=== PATIENT | male | born 1945 | race African-American/Black ===

== ENCOUNTER 2018-03-08 17:44 | Inpatient (IN) | payer MEDICARE, MEDICAID ==
[2018-03-08] MEDS: Multivitamin Tab PO SCH (17:50)
--- NOTE | 2018-03-08 18:01 | ED Physician Chart ---
ED Chief Complaint/HPI - Patient Information Date Seen:: 03/08/18 Time Seen:: 17:50 Chief Complaint:: increased restlessness and agitation History of Present Illness:: Patient has been exhibiting increased restlessness and agitation and refusal of care and refusing medications at his [facility] facility. Historian:: Patient, EMS Review:: Transfer documents Reviewed ED Review of Systems - Review of Systems General/Constitutional: No fever, No chills, No weight loss, No weakness, No diaphoresis, No edema, No loss of appetite Skin: No skin lesions, No rash, No bruising Head: No headache, No light-headedness Eyes: No loss of vision, No pain, No diplopia ENT: No earache, No nasal drainage, No sore throat, No tinnitus Neck: No neck pain, No swelling, No thyromegaly, No stiffness, No mass noted Cardio Vascular: No chest pain, No palpitations, No PND, No orthopnea, No edema Pulmonary: No SOB, No cough, No sputum, No wheezing GI: No nausea, No vomiting, No diarrhea, No pain, No melena, No hematochezia, No constipation, No hematemesis G/U: No dysuria, No frequency, No hematuria Musculoskeletal: No bone or joint pain, No back pain, No muscle pain Endocrine: No polyuria, No polydipsia Psychiatric: Prior psych history, No depression Hematopoietic: No bruising, No lymphadenopathy Allergic/Immuno: No urticaria, No angioedema Neurological: No syncope, Focal symptoms, No weakness, No paresthesia, No headache, No seizure, No dizziness, No confusion, No vertigo ED Past Medical History - Past Medical History Past Medical History: HTN, PUD/GERD, Arthritis, Dementia, Other (atrial fibrillation; Parkinson's disease; cerebrovascular accident with left hemiplegia ) Family History: Other (unavailable) Social History: Smoker Surgical History: other (unavailable) Psychiatricy History: Schizophrenia Medication: Reviewed Family Medical History - Family Member Mother History Unknown: Yes ED Physical Exam - Physical Examination General/Constitutional: Awake Other Gen/Cons comments:: Mildly chronically ill-appearing. Patient is confused. States the year is 1987. Head: Atraumatic Eyes: Lids, conjuctiva normal Skin: Nl inspection, No rash ENMT: External ears, nose nl Neck: Nontender Respiratory: Nl effort/Exclusion, Clear to Auscultation Other Cardio Vascular comments:: Irregular rhythm with a 4/6 systolic murmur GI: No tenderness/rebounding/guarding : No CVA tenderness Extremities: Normal digits & nails Other Neuro/Psych comments:: 1 out of 4 drooping left side of mouth; weakness left arm and left leg ED Labs/Radiology/EKG Results - Lab Results Results: Laboratory Results - last 24 hr 03/08/18 03/08/18 03/08/18 18:05 18:05 18:05 WBC 3.5 L RBC 4.55 Hgb 13.5 Hct 40.9 L MCV 90.0 MCH 29.6 MCHC Differential 32.9 RDW 14.5 Plt Count 225 MPV 6.8 Neutrophils % 60.7 Lymphocytes % 30.7 Monocytes % 4.9 Eosinophils % 1.7 Basophils % 2.0 Sodium 139 Potassium 3.9 Chloride 105 Carbon Dioxide 28.9 Anion Gap 9.0 BUN 16 Creatinine 1.1 Est GFR ( Amer) TNP Est GFR (Non-Af Amer) TNP BUN/Creatinine Ratio 14.5 Glucose 104 Hemoglobin A1c % 5.1 Calcium 9.3 Total Bilirubin 1.2 H AST 18 ALT 3 L Alkaline Phosphatase 55 Total Protein 6.7 Albumin 3.7 L Globulin 3.0 Albumin/Globulin Ratio 1.2 Triglycerides 58 Cholesterol 180 LDL Cholesterol Direct 110 HDL Cholesterol 56 TSH 03/08/18 18:05 WBC RBC Hgb Hct MCV MCH MCHC Differential RDW Plt Count MPV Neutrophils % Lymphocytes % Monocytes % Eosinophils % Basophils % Sodium Potassium Chloride Carbon Dioxide Anion Gap BUN Creatinine Est GFR ( Amer) Est GFR (Non-Af Amer) BUN/Creatinine Ratio Glucose Hemoglobin A1c % Calcium Total Bilirubin AST ALT Alkaline Phosphatase Total Protein Albumin Globulin Albumin/Globulin Ratio Triglycerides Cholesterol LDL Cholesterol Direct HDL Cholesterol TSH 1.48 - EKG Interpretations Rate & Rhythm: atrial fibrillation with a rate is 66 [place]: left axis deviation ED Septic Shock - . Is Septic Shock (SBP<90, OR Lactate>4 mmol\L) present?: No ED Reassessment (Disposition) - Reassessment Reassessment:: Patient is in atrial fibrillation and at times his heart rate gets slightly bradycardic. Reassessment Condition:: Unchanged - Diagnosis Diagnosis:: Agitation; dementia; status post CVA with left hemiparesis - Patient Disposition Admitted to:: [facility] Admitting Medical Physician:: Alexis Aguilar Admitting Psych Physician:: Johnny Bethea Condition at Disposition:: Stable, Unchanged
[2018-03-08 18:19] LABS: % EOSINOPHILS 1.7 % (0.0-5.0); % LYMPHOCYTES 30.7 % (20.0-50.0); % MONOCYTES 4.9 % (2.0-10.0); % NEUTROPHILS 60.7 % (40.0-80.0); BASOPHILE ABSOLUTE 0.1 Th/cumm (0-0.2); EOSINOPHILE ABSOLUTE 0.1 Th/cmm (0.1-0.4); HEMATOCRIT 40.9 % (41.0-60); HEMOGLOBIN 13.5 gm/dL (12-16); LYMPHOCYTE ABSOLUTE 1.1 Th/cmm (1.5-3.0); MEAN CORPUSCULAR HEMOGLOBIN 29.6 pg (27.0-31.0); MEAN CORPUSCULAR HGB CONC 32.9 pg (28.0-36.0); MEAN PLATELET VOLUME 6.8 fl; MONOCYTE ABSOLUTE 0.2 Th/cmm (0.3-1.0); PLATELET COUNT 225 Th/cmm (150-400); RED BLOOD COUNT 4.55 Mil/cmm (3.80-5.80); RED CELL DISTRIBUTION WIDTH 14.5 % (11.5-20.0)
[2018-03-08 18:31] LABS: WHITE BLOOD COUNT 3.5 Th/cmm (4.8-10.8)
[2018-03-08 18:32] LABS: ALB/GLOB RATIO 1.2 (1.0-1.8); ALBUMIN 3.7 gm/dL (4.2-5.5); ALKALINE PHOSPHATASE 55 U/L (34-104); BILIRUBIN,TOTAL 1.2 mg/dL (0.3-1.0); BUN - UREA NITROGEN 16 mg/dL (7-25); CALCIUM SERUM 9.3 mg/dL (8.6-10.3); CARBON DIOXIDE 28.9 mEq/L (21.0-31.0); CHLORIDE 105 mEq/L (98-107); CHOLESTEROL 180 mg/dL (<200); CREATININE - SERUM 1.1 mg/dL (0.7-1.3); GLUCOSE 104 mg/dL (70-105); HDL -HIGH DENSITY LIPOPROTEIN 56 mg/dL (23-92); POTASSIUM SERUM 3.9 mEq/L (3.5-5.1); SGOT 18 U/L (13-39); SGPT/ALT 3 U/L (7-52); SODIUM SERUM 139 mEq/L (136-145); TOTAL PROTEIN,SERUM 6.7 gm/dL (6.0-8.3); TRIGLYCERIDES 58 mg/dL (<150)
[2018-03-08 19:05] LABS: A1C % 5.1 % (4.0-6.0)
[2018-03-08 20:08] LABS: URINE MICROSCOPIC INDICATED? YES; URINE SOURCE CLEAN C
[2018-03-08 20:09] LABS: URINE BILIRUBIN NEGATIVE (NEGATIVE); URINE BLOOD NEGATIVE (NEGATIVE); URINE GLUCOSE (UA) NEGATIVE (NEGATIVE); URINE KETONE TRACE mg/dL (NEGATIVE); URINE LEUKOCYTE ESTERASE NEGATIVE (NEGATIVE); URINE NITRATE NEGATIVE (NEGATIVE); URINE PH 5.5 (4.6 - 8.0); URINE PROTEIN NEGATIVE (NEGATIVE)
[2018-03-08 20:12] LABS: URINE CLARITY CLEAR (CLEAR); URINE COLOR YELLOW
[2018-03-08 20:14] LABS: URINE BACTERIA NONE SEEN /hpf (NONE SEEN); URINE EPITHELIAL CELLS NONE SEEN /lpf (FEW); URINE RBC NONE SEEN /hpf (0-5); URINE WBC NONE SEEN /hpf (0-5)
[2018-03-08 20:34] VITALS: BP 134/92
[2018-03-08] MEDS ORDERED: Magnesium Hydroxide (MOM) 30 mL UDC PO PRN (22:18)
[2018-03-09] MEDS: Vitamin D3 2,000 IU SGL PO SCH (08:15)
[2018-03-09] MEDS: Diltiazem CD 180 mg C24 PO SCH (08:15)
[2018-03-09] MEDS: Multivitamin Tab PO SCH ×2 (08:16)
[2018-03-09] MEDS ORDERED: RIVASTIGMINE TARTRATE PO SCH (09:00)
--- NOTE | 2018-03-09 13:39 | History & Physical ---
ADMIT DATE: 03/08/2018 INTERNAL MEDICINE CONSULTATION HISTORY OF PRESENT ILLNESS: The patient is a 72-year-old male. PAST MEDICAL HISTORY: Significant for Parkinson disease, hypertension, coronary artery disease, peptic ulcer disease, gastritis, arthritis and osteoporosis. SOCIAL HISTORY: No documented smoking, alcohol abuse. FAMILY HISTORY: Not available. REVIEW OF SYSTEMS: No vomiting, no diarrhea, no melena, no hematochezia, no fever. The patient is bedbound or wheelchair bound. PHYSICAL EXAMINATION: GENERAL: Average male in no obvious respiratory distress. VITAL SIGNS: Include a blood pressure of 110/70, heart rate 80, respiratory rate of 18. SKIN: Showed no cellulitis. HEENT: Normal conjunctivae. NECK: Supple. LUNGS: Clear. Bilateral good air. No adventitious sounds. HEART: First and second present. ABDOMEN: Soft, bowel sounds present. EXTREMITIES: Show arthritis. NEUROLOGIC: The patient has Parkinson disease. LABORATORY AND DIAGNOSTIC DATA: Include white count of 3.5, hemoglobin 13.5, hematocrit 40.9, platelet count of 225. Sodium 139, potassium 3.9, chloride 105, bicarb 28.9, BUN 16, creatinine 1.1, blood sugar 104. ADMITTING DIAGNOSES: Include hypertension, Parkinson disease, coronary artery disease, peptic ulcer disease, gastritis, arthritis, osteoporosis, and dementia. CURRENT MEDICATIONS: Include Lexapro, Zestril, milk of magnesia, Exelon, Cardizem-CD and Restoril. The patient is on Coumadin. The patient is on Sinemet 25/100 four times a day, amantadine 100 mg twice a day. JOB# [id number]
--- NOTE | 2018-03-09 15:09 | Psychosocial Evaluation ---
DATE OF SERVICE: 03/09/2018 IDENTIFYING DATA: The patient is a 72-year-old Afro-[place]og[place]ese male, resident of a [facility] in [place]. Information is obtained by directly interviewing the patient as well as reviewing the admission papers and they are reliable. JUSTIFICATION OF HOSPITALIZATION: The patient is admitted here on a voluntary basis in view of his acute psychosis. CHIEF COMPLAINT: "I do not know. I am not feeling well. I cannot answer all your questions." HISTORY OF PRESENT ILLNESS: This is the first psychiatric hospitalization to [facility] for this patient, who is reported to have been diagnosed to have schizoaffective disorder and is on Lexapro and Zyprexa. The patient has been having difficult time to cope with the stress and the patient is getting easily paranoid, agitated and hence the patient has been referred over here. PAST PSYCHIATRIC HISTORY: The patient is reporting that he cannot recall being in this hospital before. MEDICAL HISTORY AND PHYSICAL EXAMINATION: Requested to be done by Dr. Aguilar. SUBSTANCE ABUSE HISTORY: None. PHYSICAL OR SEXUAL ABUSE HISTORY: None. LEGAL PROBLEMS: None at this time. STRENGTH AND ASSETS: The patient is motivated. MENTAL STATUS EXAMINATION: The patient is a 72-year-old, looking his stated age, superficially cooperative. Eye contact is poor. Mood is irritable. Affect is constricted. The patient has paranoid delusions. The patient is getting frustrated for being in here. The patient is alert and awake. Insight and judgment at this time are noted to be still impaired. Impulse control is noted to be limited. Coping skills are noted to be limited. DIAGNOSTIC IMPRESSION: AXIS I: Schizoaffective disorder by history. AXIS II: None. AXIS III: As per Dr. Aguilar. IMMEDIATE TREATMENT PLAN: The patient is going to be continued on the Lexapro and Zyprexa. The patient is going to be closely monitored. Once stabilized, the patient is going to be discharged back to the facility. JOB# [id number]
[2018-03-10] MEDS: Vitamin D3 2,000 IU SGL PO SCH (09:32)
[2018-03-10] MEDS: Diltiazem CD 180 mg C24 PO SCH (09:33)
[2018-03-10] MEDS: Multivitamin Tab PO SCH ×2 (12:27→12:28)
[2018-03-10 14:29] LABS: INR 1.57 (0.5-1.4); PROTHROMBIN TIME (TEST) 16.7 SECONDS (9.5-11.5)
--- NOTE | 2018-03-11 00:26 | Progress Notes ---
DATE: 03/10/2018 SUBJECTIVE: Staff was spoken to. The patient is interviewed. The patient has been isolative and withdrawn. Insight and judgment at this time are noted to be still impaired. Impulse control is noted to be limited. The patient is still feeling very depressed. The patient, however, has been able to verbalize the concerns. PLAN: The patient is reporting that the medication is too much and he is sleeping a lot and hence the Zyprexa is decreased to 5 mg only at bedtime and the patient is going to be followed up with the supportive therapy. The patient is not ready to be discharged to a lower level of care in view of his depression and psychosis. JOB# [id number]
[2018-03-11] MEDS: Diltiazem CD 180 mg C24 PO SCH (08:28)
[2018-03-11] MEDS: Multivitamin Tab PO SCH ×2 (08:28→08:30)
[2018-03-11] MEDS: Vitamin D3 2,000 IU SGL PO SCH (08:28)
--- NOTE | 2018-03-11 18:03 | Progress Notes ---
DATE: 03/11/2018 SUBJECTIVE: Staff was spoken to. The patient is interviewed. Mood is noted to be dysphoric. Coping skills are noted to be poor. The patient is isolative and withdrawn. Insight and judgment are noted to be still impaired. Impulse control is noted to be poor. The patient is getting easily frustrated. The patient is currently on carbidopa/levodopa and the patient is also on escitalopram 20 mg for his depression and olanzapine has been decreased to 5 mg at bedtime. The patient has paranoid delusions and the depression is a major concern. PLAN: To continue the patient with the supportive therapy and followup. JOB# [id number]
--- NOTE | 2018-03-12 03:23 | Consultation ---
DATE OF CONSULTATION: 03/10/2018 REFERRING PHYSICIAN: Johnny Bethea M.D. TYPE OF CONSULTATION: Psychology. HISTORY OF PRESENT ILLNESS: The patient is a 72-year-old -[place] male, who is a resident of [facility] in [place]. The patient is known to this copy writer from that facility. The following is by record review as well as by patient's self report. The patient is being admitted due to acute psychosis. Upon interview, the patient states he does not know why he is being hospitalized and states that he is not feeling well. The patient had difficulty answering questions, but does recognize this copy writer from his facility. The patient was able to contract for safety and denies any suicidal ideation, plan or intention. PAST MEDICAL HISTORY: Please see history and physical by Dr. Aguilar. PAST PSYCHIATRIC HISTORY: The patient has had previous hospitalizations many years ago. The patient is known to this copy writer from [facility] and is under the care of this copy writer as well as Dr. Odom for Psychiatry. The patient has a history of dementia. SUBSTANCE ABUSE HISTORY: None. PSYCHOSOCIAL HISTORY: The patient is a resident of [facility]. The patient has no family involvement in his care. The patient's occupational and educational history and mormon affiliation are part of the record. The patient states no physical or sexual abuse or any current legal problems. MENTAL STATUS EXAMINATION: The patient appears to be younger than his stated age. The patient's attitude is cooperative. Eye contact is fair. Mood is mildly anxious and irritable at times. Speech is difficult to comprehend and delayed. Thought process shows to be confused. The patient denied any suicidal ideation, plan or intention. The patient denies any auditory or visual hallucinations. There is some evidence of suspiciousness. The patient's behavior has been frustrated on the unit, but compliant and redirectable. Impulse control is fair. Concentration is poor. The patient is confused and has difficulty sustaining focus and attention as well as answering questions relevantly. Sensorium is alert and oriented to person and place. The patient's immediate and short term memory are impaired. Long-term memory needs further evaluation. The patient did not participate in interpretation of proverbs. Insight is poor. Judgment is compromised. DIAGNOSTIC IMPRESSION: AXIS I: 1. History of schizoaffective disorder. 2. History of dementia. AXIS II: Deferred. AXIS III: Please see history and physical by Dr. Aguilar. PLAN: The patient has been seen by Dr. Bethea for psychiatric evaluation and for the management of the patient's psychotropic medications. The patient is being continued on Lexapro and Zyprexa according to Dr. Bethea. We will provide supportive psychotherapy to include reality orientation and reality integration. We will provide coping mechanisms for chronic mental illness. We will also provide coping strategies for phase of life issues. The patient will be followed by this copy writer at his facility. Thank you, Dr. Bethea, for this consult and the opportunity to participate with you in this patient's care. JOB# [id number] CYRUS
[2018-03-12] MEDS: Multivitamin Tab PO SCH ×2 (09:40→09:42)
[2018-03-12] MEDS: Vitamin D3 2,000 IU SGL PO SCH (09:40)
[2018-03-12] MEDS: Diltiazem CD 180 mg C24 PO SCH (09:41)
--- NOTE | 2018-03-12 19:39 | Progress Notes ---
DATE: 03/12/2018 PSYCHIATRIC PROGRESS NOTE SUBJECTIVE: Staff was spoken to. The patient is interviewed. Mood is noted to be irritable. Affect is constricted. The patient is isolative and withdrawn. Paranoid delusions are noted, but denies any command hallucinations today. The patient is able to tolerate the Zyprexa and no major side effects are noted. The patient's sleep is noted to be improving. Appetite is noted to be fair. ASSESSMENT: The patient is still psychotic. PLAN: To continue the patient with the current medications and followup. JOB# [id number]
[2018-03-12] MEDS ORDERED: cloNIDine 0.3 mg/24 hr Tdm TD SCH (22:18)
[2018-03-13] MEDS: Vitamin D3 2,000 IU SGL PO SCH (08:55)
[2018-03-13] MEDS: Diltiazem CD 180 mg C24 PO SCH (08:55)
[2018-03-13] MEDS: Multivitamin Tab PO SCH ×2 (15:55)
--- NOTE | 2018-03-13 17:38 | Progress Notes ---
DATE: 03/13/2018 PSYCHIATRIC PROGRESS NOTE SUBJECTIVE: Staff was spoken to. The patient is interviewed. Mood is noted to be less irritable. The patient has been cooperative today. The patient's insight and judgment are noted to be improving. No side effects to the medications are noted. The patient is currently on the Seroquel, which is being given at 12.5 mg at bedtime. The patient has been able to tolerate the medications. No side effects to the medications are noted. Since the patient has been still presenting with the psychosis, it is decided to increase the dose on the Seroquel to try 25 mg tonight and follow the patient with the supportive therapy. JOB# [id number]
[2018-03-14] MEDS: Vitamin D3 2,000 IU SGL PO SCH (08:27)
[2018-03-14] MEDS: Diltiazem CD 180 mg C24 PO SCH (08:28)
[2018-03-14] MEDS: Multivitamin Tab PO SCH ×2 (08:28→11:54)
--- NOTE | 2018-03-14 19:47 | Discharge Summary ---
DATE OF DISCHARGE: 03/14/2018 IDENTIFYING DATA: The patient is a 72-year-old -[place] Islander male resident of [facility] in [place]. JUSTIFICATION OF HOSPITALIZATION: The patient is admitted on a voluntary basis in view of his psychosis. CHIEF COMPLAINT: "I am not feeling well. "I don't know, I cannot ask you a question." DIAGNOSES AT THE TIME OF ADMISSION: AXIS I: Schizoaffective disorder by history. AXIS II: None. AXIS III: As per Dr. Aguilar. HISTORY OF PRESENT ILLNESS: Please refer the 03/09/2018 dictation done by me. Physical examination was done by Dr. Aguilar and is noted to be significant for peptic ulcer disease, gastritis, arthritis, osteoporosis and Parkinson's disease. HOSPITAL COURSE AND RESPONSE TO TREATMENT: The patient has been observed on inpatient unit, provided with supportive psychotherapy. The patient has been encouraged to participate in the groups and verbalize the concerns. The patient has been given the carbidopa/levodopa 25/100 four times a day and the patient has been placed on the Lexapro for his depression, which was given at 20 mg. The patient's olanzapine has been decreased to 5 mg at bedtime with these medications. The patient was observed and the patient has been doing fairly well. The patient is not noted to be a danger to self or others and hence the patient was discharged with recommendation that he is going to be seeking treatment on an outpatient basis. MENTAL STATUS EXAMINATION: At the time of discharge, the patient's mood is noted to be anxious. Affect is appropriate. The patient has paranoia, but denies any command hallucinations. The patient is not presenting with any threats to harm self or others at the time of the discharge. CONDITION: At the time of discharge noted to be stable. DIAGNOSES AT THE TIME OF DISCHARGE: AXIS I: Schizoaffective disorder. AXIS II: None. AXIS III: Parkinson's disease, peptic ulcer disease, and osteoarthritis. AFTERCARE PLAN: [facility] to be followed up closely by Dr. Odom. PROGNOSIS: At the time of discharge noted to be fair with the treatment. JOB# [id number]
== END 2018-03-14 17:30 | DRG 885 ==
LOC: ER 17:44 → GERO2 19:30
PROVIDERS: ADMIT Psychiatry & Neurology Psychiatry; ATTEND Psychiatry & Neurology Psychiatry
DX: F25.9 Schizoaffective disorder, unspecified (principal); F02.80 Dementia in other diseases classified elsewhere, unspecified severity, without behavioral disturbance, psychotic disturbance, mood disturbance, and anxiety; I69.354 Hemiplegia and hemiparesis following cerebral infarction affecting left non-dominant side; G20 Parkinson's disease; I10 Essential (primary) hypertension; K21.9 Gastro-esophageal reflux disease without esophagitis; M19.90 Unspecified osteoarthritis, unspecified site; I48.91 Unspecified atrial fibrillation; F17.210 Nicotine dependence, cigarettes, uncomplicated; I25.10 Atherosclerotic heart disease of native coronary artery without angina pectoris; K27.9 Peptic ulcer, site unspecified, unspecified as acute or chronic, without hemorrhage or perforation; M81.0 Age-related osteoporosis without current pathological fracture; K29.70 Gastritis, unspecified, without bleeding
CPT/HCPCS: 36415-UA; 80053-TC; 80061-TC; 81001-TC; 83036-90; 84443-TC; 85025-TC; 85610-TC; 86592-TC; 93005; J7051; Z7610